=== PATIENT | female | born 1975 | race Caucasian/White ===

== ENCOUNTER 2024-05-12 11:31 | Emergency (ER) | payer OTHER, SELFPAY ==
[2024-05-12 11:40] VITALS: BP 145/85; PULSE 77; RESP 16; TEMP 36.9; O2SAT 98; BMI 30.4
--- NOTE | 2024-05-12 11:43 | ED_ITS ---
HPI - Animal Bite <Elisa Leon PA-C - Last Filed: 05/12/24 14:06> General Chief Complaint: Animal Bite Stated Complaint: squirrel bite Time Seen by Provider: 05/12/24 11:39 History of Present Illness HPI narrative: 48-year-old woman presents with concern for a squirrel bite to her left index finger. Patient states that they believe this is a young squirrel that they have been watching that has been outside their home over the last few days they have not seen it show any abnormal behavior. Their cat caught it and patient's adult daughter brought the squirrel into the home today after finding it is looking like it was playing and not moving. They put it in the hamstring cage and gave it some water and patient states that it was sleeping and seemed very calm this morning, when her other daughter came home she wanted to show it to her and lifted the door of the cage and the squirrel escaped into the house. She attempted to grab it and the squirrel bit her. She states it bled ?quite a bit?. This happened at around 9:30 a.m. this morning. She did wash it out with copious water and soap. She states she thinks her last tetanus was as much as 10 years ago. She does not want to have the animal killed and tested for rabies. Related Data Home Medications Medication Instructions Recorded Confirmed sertraline 100 mg tablet (Zoloft) 100 mg PO Q DAY ##0 09/02/11 VIT#96/FERROUS FUM/FA 1 tab PO Q DAY ##0 10/08/11 ( Tablet) bupropion HCl 150 mg tablet,12 hr 150 mg PO QDAY ##0 07/25/17 sustained-release (Wellbutrin SR) cholecalciferol (vitamin D3) 25 1,000 PO QDAY ##0 07/25/17 mcg (1,000 unit) chewable tablet (Vitamin D3) fluoxetine 20 mg capsule 20 mg PO QDAY ##0 07/25/17 methylphenidate HCl 36 mg 36 mg PO QDAY ##0 07/25/17 tablet,extended release 24 hr multivitamin (Multiple Vitamins 1 tab PO QDAY ##0 07/25/17 tablet) Previous Rx's Medication Instructions Recorded oxycodone-acetaminophen 5 mg-325 0 tab PO Q4HP PRN #20 tabs /15/17 mg tablet (Percocet) amoxicillin 875 mg-potassium 1 tab PO Q12H animal bite wound 05/12/24 clavulanate 125 mg tablet infection prophylaxis 7 days #14 tabs Allergies Allergy/AdvReac Type Severity Reaction Status Date / Time Sulfa (Sulfonamide Allergy Unknown HIVES Verified 05/12/24 12:04 Antibiotics) [SULFA (SULFONAMIDE ANTIBIOTICS)] Review of Systems <Elisa Leon PA-C - Last Filed: 05/12/24 14:06> Review of Systems Narrative: See HPI Exam <Elisa Leon PA-C - Last Filed: 05/12/24 14:06> Narrative Exam Narrative: GENERAL: [48] year old patient appears stated age. Well-developed patient, in mild distress. HEAD: Atraumatic. Normocephalic. EYES: Pupils equal round and reactive. Extraocular motions intact. No scleral icterus. No injection or drainage. ENT: Nose without bleeding, purulent drainage. Airway patent. NECK: Trachea midline. CARDIOVASCULAR: Regular rate and rhythm without murmurs, gallops, or rubs. RESPIRATORY: Clear to auscultation. Breath sounds equal bilaterally. No wheezes, rales, or rhonchi. EXTREMITIES: There is an approximately 3 mm skin flap/puncture wound on the patient's pad of the left index finger, there is mild damage to the distal nail and 2nd puncture wound adjacent to the distal nail. Bleeding is controlled. Range of motion of the affected extremities intact, cap refill is less than 2 seconds. No other edema or joint tenderness. NEURO: AOx3. SKIN: No rash or erythema of visible areas Initial Vital Signs Initial Vital Signs: Vital Signs Temperature 98.5 F 05/12/24 11:40 Pulse Rate 77 05/12/24 11:40 Respiratory Rate 16 05/12/24 11:40 Blood Pressure 145/85 H 05/12/24 11:40 Pulse Oximetry 98 05/12/24 11:40 Oxygen Delivery Method Room Air 05/12/24 11:40 <Van Rivera DO - Last Filed: 05/12/24 14:12> Initial Vital Signs Initial Vital Signs: Vital Signs Temperature 98.5 F 05/12/24 11:40 Pulse Rate 77 05/12/24 11:40 Respiratory Rate 16 05/12/24 11:40 Blood Pressure 145/85 H 05/12/24 11:40 Pulse Oximetry 98 05/12/24 11:40 Oxygen Delivery Method Room Air 05/12/24 11:40 Course <Elisa Leon PA-C - Last Filed: 05/12/24 14:06> Orders Ordered: Discontinued Medications Bacitracin (Bacitracin Oint 0.9 Gm Pckt) 1 applic TOP NOW ONE Stop: 05/12/24 12:53 Last Admin: 05/12/24 13:33 Dose: 1 applic Documented By: SPF Diphtheria/Tetanus/Acell Pertussis (Tet,Diph,Pertuss(Acell),Vac/Pf 0.5 Ml Syringe) 0.5 ml IM .ONCE ONE Stop: 05/12/24 11:57 Last Admin: 05/12/24 12:05 Dose: 0.5 ml Documented By: SPF Lidocaine/Prilocaine (Lidocaine/Prilocaine 5 Gm) 5 gm TOP NOW ONE Stop: 05/12/24 11:57 Last Admin: 05/12/24 12:05 Dose: 5 gm Documented By: SPF Rabies Immune Globulin (Rabies Immune Globulin 300 Unit/Ml 1ml Vial) 1,800 unit 20 unit/kg (1814 unit) IM NOW ONE Stop: 05/12/24 12:31 Last Admin: 05/12/24 12:41 Dose: 1,800 unit Documented By: SPF Rabies Vaccine (Rabies Vaccine (Rabavert) 2.5 Units Syringe) 2.5 units IM .ONCE ONE Stop: 05/12/24 12:05 Last Admin: 05/12/24 13:16 Dose: 2.5 units Documented By: SPF Vital Signs Vital signs: Vital Signs - 8 hr 05/12/24 11:40 05/12/24 13:38 Temperature 98.5 F Pulse Rate 77 70 Respiratory Rate 16 18 Blood Pressure 145/85 H 127/80 Pulse Oximetry 98 100 Oxygen Delivery Method Room Air Room Air <Van Rivera DO - Last Filed: 05/12/24 14:12> Orders Ordered: Discontinued Medications Bacitracin (Bacitracin Oint 0.9 Gm Pckt) 1 applic TOP NOW ONE Stop: 05/12/24 12:53 Last Admin: 05/12/24 13:33 Dose: 1 applic Documented By: SPF Diphtheria/Tetanus/Acell Pertussis (Tet,Diph,Pertuss(Acell),Vac/Pf 0.5 Ml Syringe) 0.5 ml IM .ONCE ONE Stop: 05/12/24 11:57 Last Admin: 05/12/24 12:05 Dose: 0.5 ml Documented By: SPF Lidocaine/Prilocaine (Lidocaine/Prilocaine 5 Gm) 5 gm TOP NOW ONE Stop: 05/12/24 11:57 Last Admin: 05/12/24 12:05 Dose: 5 gm Documented By: SPF Rabies Immune Globulin (Rabies Immune Globulin 300 Unit/Ml 1ml Vial) 1,800 unit 20 unit/kg (1814 unit) IM NOW ONE Stop: 05/12/24 12:31 Last Admin: 05/12/24 12:41 Dose: 1,800 unit Documented By: SPF Rabies Vaccine (Rabies Vaccine (Rabavert) 2.5 Units Syringe) 2.5 units IM .ONCE ONE Stop: 05/12/24 12:05 Last Admin: 05/12/24 13:16 Dose: 2.5 units Documented By: SPF Vital Signs Vital signs: Vital Signs - 8 hr 05/12/24 11:40 05/12/24 13:38 Temperature 98.5 F Pulse Rate 77 70 Respiratory Rate 16 18 Blood Pressure 145/85 H 127/80 Pulse Oximetry 98 100 Oxygen Delivery Method Room Air Room Air MDM - Animal Bite <Elisa Leon PA-C - Last Filed: 05/12/24 14:06> Differential Diagnosis Differential diagnosis: Likely bite by animal and rabies contact (Squirrel bite, possible rabies contact) Medical Records Attestation: I reviewed the patient's medical records. Treatment and disposition Shared decision making:: Discussed at length with the patient and her wrists and benefits of treatment today with immunoglobulin and rabies vaccine. She is initially unsure if she wants to pursue this however feels if there is any risk at all even if it is low she would prefer to be treated and agrees to treatment with vaccination series as well as immune globulin. MDM Narrative Medical decision making narrative: This is a well-appearing 48-year-old woman with no significant medical history presenting with concern for a squirrel bite to her left index finger that was sustained at 9:30 a.m. this morning. Discussed this patient and treatment plan with attending physician Dr. Leonardo Workman who recommended immunoglobulin with injection at the site of the wound as well as IM at 20 use per kg as well as rabies vaccine with 1st dose today and follow-up doses to finish the series. After discussion with the patient she is agreeable to immune globulin and rabies vaccine series, prefers to have this done if there is any risk at all. She does not want to have the animal sent to lab for rabies testing. Her tetanus is updated as it has been nearly 10 years since her last tetanus. Prescription for Augmentin for 7 day course. Patient will need to have follow-up rabies vaccine the May to complete her series. Return precautions provided, follow-up plan discussed, all questions answered. Discharge Plan Departure Patient Disposition: Home Clinical Impression: Bitten by squirrel, initial encounter, No known health problems Instructions: DI for Animal Bites, DI for Rabies Vaccine Activity Restrictions/Additional Instructions: *You have been diagnosed with [squirrel bite] *What to do: *Please continue to take your regular medications as directed. [ ] New medication prescriptions sent to your pharmacy: [ ] [ ] New medication written as a paper prescription [X ] No new medications given--you will need repeat vaccinations to complete your rabies series *Please follow up with your primary care provider in 2-3 days, call for an appointment. Let them know you were seen in the Emergency Department and that we ask that you be seen in follow up. We will electronically transmit a record of today's note if your PCP is in our system. You came in today with concern for a bite from a squirrel, we discussed this at length and although it is fairly low risk because rabies is deadly and there is still a chance that you could have been exposed we did proceed with rabies vaccine and immunoglobulin. We also washed out your wound and cleansed it with surgical soap cleanser. We injected a small amount of immunoglobulin at the site of the wound and you had the remainder of the immunoglobulin injected intramuscularly. We also updated her Tdap and gave you your 1st dose of rabies vaccine. This is a series in you need to have additional doses of the vaccine on the May 19May in the 26 of May to complete the series. You may come back to the emergency department for this but it is also very reasonable to reach out to your primary care provider and see if they can see you in clinic in clinic and have this shot done as an outpatient visit--you should definitely call ahead as they may need to make sure that they have the vaccine available for you. I have included some information about the rabies immune globulin and vaccine in your paperwork today. You stated that you do not want to submit the animal to the state lab for testing. However I would strongly recommend that you get the animal out of her home safely you can always contact law enforcement to see if they have someone from animal control or can direct you to an appropriate person to safely do this. We did send in a prescription for Augmentin for 7 days as prophylaxis against infection as there is high risk of infection from animal bites. *If you do not have a primary care provider please contact the [facility] Resource line at [phone]. They will ask some questions about your medical history and help get you set up with a doctor in the community. *Return to Emergency Department if you should have any new, worsening or concerning symptoms, such as [fever greater than 101 F, shaking chills, worsening pain, persistent vomiting or other bothersome symptoms] Prescriptions: New amoxicillin-pot clavulanate 875-125 mg tablet 1 tab PO Q12H 7 Days Qty: 14 0RF No Action sertraline [Zoloft] 100 MG tablet 100 mg PO Q DAY Qty: 0 VIT#96/FERROUS FUM/FA ( Tablet) 1 tab PO Q DAY Qty: 0 multivitamin [Multiple Vitamins] 1 EACH tablet 1 tab PO QDAY Qty: 0 cholecalciferol (vitamin D3) [Vitamin D3] 1,000 UNIT tablet,chewable 1,000 PO QDAY Qty: 0 bupropion HCl [Wellbutrin SR] 150 MG tablet extended release 12 hr 150 mg PO QDAY Qty: 0 methylphenidate HCl 36 MG tablet extended release 24hr 36 mg PO QDAY Qty: 0 fluoxetine 20 MG capsule 20 mg PO QDAY Qty: 0 oxycodone-acetaminophen [Percocet] 5 MG/325 MG tablet 0 tab PO Q4HP PRNQty: 20 0RF Stand Alone Forms: Patient Portal/API ED Sign-out <Van Rivera, - Last Filed: 05/12/24 14:12> Cosign ED Attending Cosignature Attestation: Dr Rivera Co-Sign Statement: I was available for consultation during this patient's emergency department visit. This chart is signed by myself for admini strative purposes only. I did not have direct contact with this patient during this visit. They were seen independently by the [facility].
[2024-05-12] MEDS: TET,DIPH,PERTUSS(ACELL),VAC/PF 0.5 ML SYRINGE IM (12:05)
[2024-05-12] MEDS: LIDOCAINE/PRILOCAINE 5 GM TOP (12:05)
[2024-05-12] MEDS: RABIES IMMUNE GLOBULIN 300 UNIT/ML 1mL VIAL 1800 UNIT IM (12:41)
[2024-05-12] MEDS: RABIES VACCINE (RABAVERT) 2.5 UNITS SYRINGE IM (13:16)
[2024-05-12] MEDS: BACITRACIN OINT 0.9 GM PCKT 1 APPLIC TOP (13:33)
[2024-05-12 13:38] VITALS: BP 127/80; PULSE 70; RESP 18; O2SAT 100
--- NOTE | 2024-05-12 13:54 | PC.NURSE ---
[facility] paperwork faxed to: [facility] Confidential Fax Physical Address: [place] [address] Mailing Address: [place] [address]
== END 2024-05-12 13:51 | disposition home or self-care (01) ==
PROVIDERS: Emergency Provider Student in an Organized Health Care Education/Training Program
DX: S61.251A Open bite of left index finger without damage to nail, initial encounter (principal); W53.21XA Bitten by squirrel, initial encounter; Z20.3 Contact with and (suspected) exposure to rabies; Z23 Encounter for immunization
CPT/HCPCS: 90375; 90471; 90472; 90675; 96372; 99283; 90715